=== PATIENT | male | born 1955 | race Caucasian/White ===

== ENCOUNTER → 2021-05-31 | Outpatient (CLI) | payer BC ==
--- NOTE | 2021-05-31 16:51 | CT ---
EXAMINATION TYPE: CT abdomen pelvis w con DATE OF EXAM: 05/31/2021 COMPARISON: None. HISTORY: left inguinal pain CT DLP: 1170.1 mGycm, Automated Exposure Control for Dose Reduction was Utilized. CONTRAST: CT scan of the abdomen and pelvis is performed with oral and with IV Contrast, patient injected with 100 mL of Isovue 300. FINDINGS: LUNG BASES: No significant abnormality is appreciated. LIVER/GB: Several scattered small hypodense lesions throughout the liver are too small to further viviana racterize for presumed benign. PANCREAS: No significant abnormality is seen. SPLEEN: No significant abnormality is seen. ADRENALS: No significant abnormality is seen. KIDNEYS: Incidental Simple appearing parapelvic cyst lower pole left kidney delayed axial image 42. BOWEL: The oral contrast reaches the transverse colon level. No suspicious small or large bowel dilat ation is seen. There is redundant sigmoid colon noted. PROSTATE/SEMINAL VESICLES: No gross abnormality seen. LYMPH NODES: No greater than 1cm abdominal or pelvic lymph nodes are appreciated. OSSEOUS STRUCTURES: Moderate disc space narrowing and vacuum disc phenomenon L4-L5 and L5-S1 levels. Moderate anterior spurring lower thoracic spine with endplate sclerosis. OTHER: There is moderate to large sized left inguinal hernia containing fat and portion of sigmoid co beth accounting for physical exam abnormality. No abnormal proximal dilatation of sigmoid colon seen t o suggest bowel obstruction. No significant fluid or fat stranding in the inguinal hernia. IMPRESSION: Confirmation of moderate to large size left inguinal hernia containing portion of sigmoid colon without bowel obstruction.
== END | disposition home or self-care (01) ==
LOC: RADCTMAIN 14:18
PROVIDERS: ATTEND Family Medicine
DX: K40.90 Unilateral inguinal hernia, without obstruction or gangrene, not specified as recurrent (principal)
CPT/HCPCS: 74177; Q9967